=== PATIENT | female | born 1940 | race African-American/Black ===

== ENCOUNTER → 2016-12-30 | Outpatient (CLI) | payer MEDICARE, BC ==
[~2016-12-30] MED LIST: ACET-822; EFFE150C PO; ENAL20TA PO; ENAL5TAB PO; HYDR-2768 PO; LORA-392 PO; METO50TA PO; PROP10TA6 PO; TOPR100T15 PO; VENL75TA91 PO
--- NOTE | 2016-12-31 11:37 | RSPPFT ---
DATE OF PROCEDURE: 12/30/16 COMMENTS: Spirometry with FVC of 1.9 predicted 2.6, FEV1 of 1.2 predicted 1.9, FEV1/FVC ratio 66% predicted 81%. Post-bronchodilator FVC increases to 2.2 and FEV1 to 1.4. Minimal air trapping is present with RV/TLC at 59%. RV is increased to 2.38 predicted 2.33. DLCO is 63% of predicted. IMPRESSION: On the basis of the above, patient has an obstructive lung defect with some response to acutely inhaled bronchodilator.
== END ==
LOC: HRSP 10:28
PROVIDERS: ATTEND Internal Medicine Pulmonary Disease
DX: R06.02 Shortness of breath (principal); R91.8 Other nonspecific abnormal finding of lung field
CPT/HCPCS: 94060; 94620; 94726; 94729

== ENCOUNTER 2017-01-01 07:41 | Day surgery (SDC) | payer MEDICARE, BC ==
[~2017-01-01] VITALS: Ht 162.6 cm; Wt 83.6 kg
[2017-01-01] VITALS (7 sets, daily range): BP systolic 184–215; BP diastolic 101–113; PULSE 56–68; RESP 16–18; TEMP 97.5–98.1; O2SAT 93–95
[~2017-01-01 07:41] MED LIST changes: -ACET-822; -EFFE150C PO; -ENAL5TAB PO; -METO50TA PO; -PROP10TA6 PO
[2017-01-01] MEDS ORDERED: ENAL5TAB PO (08:22)
[2017-01-01] MEDS ORDERED: EFFE150C PO (08:22)
[2017-01-01] MEDS ORDERED: ACET-822 (08:22)
[2017-01-01] MEDS ORDERED: METO50TA PO (08:22)
[2017-01-01] MEDS ORDERED: PROP10TA6 PO (08:22)
[2017-01-01] MEDS ORDERED: SODIUM CHLOR 0.9% 1000 ML IV SCH (08:30)
[2017-01-01] MEDS ORDERED: LIDOCAINE HCL 1% 20 ML VIAL ONE (09:13)
[2017-01-01] MEDS ORDERED: MIDAZOLAM HCL 2 MG/2 ML VIAL ONE (09:22)
[2017-01-01] MEDS ORDERED: fentaNYL CITRATE 250 MCG/5 ML AMP ONE (09:22)
--- NOTE | 2017-01-01 10:58 | RADRPT ---
EXAM DATE/TIME: 01/01/2017 10:47 [facility] COMPARISON: No previous studies available for comparison. INDICATIONS : Post attempted right lung biopsy. MEDICAL HISTORY : None. SURGICAL HISTORY : None. ENCOUNTER: Initial ACUITY: 1 day PAIN SCORE: 0/10 LOCATION: Right chest FINDINGS: A single frontal expiratory view of the chest was performed. The lungs are symmetrically aerated and clear. No evidence of pneumothorax. Mediastinal structures are in the midline. The cardio-mediastinal contours and bronchopulmonary markings are unremarkable for an expiratory exam . Osseous structures are intact. CONCLUSION: Negative for pneumothorax. Melvin Chin MD FACR on January 01, 2017 at 10:57 Board Certified Radiologist. This report was verified electronically.
--- NOTE | 2017-01-01 12:06 | RADRPT ---
EXAM DATE/TIME: 01/01/2017 10:09 [facility] COMPARISON: No previous studies available for comparison. INDICATIONS : Right lung mass. RADIATION DOSE: 16.50 CTDIvol (mGy) MEDICAL HISTORY : Carcinoma, breast. Carcinoma, colon. Hypertension. SURGICAL HISTORY : Mastectomy, bilateral. Colon resection.Tubal ligation. section. ENCOUNTER: Initial ACUITY: 1 day PAIN SCALE: 0/10 LOCATION: chest TECHNIQUE: Volumetric scanning of the chest was performed. Using automated exposure control and adjustment of t he mA and/or kV according to patient size, radiation dose was kept as low as reasonably achievable to obtain optimal diagnostic quality images. DICOM format image data is available electronically for r eview and comparison. Follow-up recommendations for detected pulmonary nodules are based at a minimum on nodule size and pa tient risk factors according to Fleischner Society Guidelines.FINDINGS: Multiple attempts were made to try to obtain percutaneous access to the mass in the right upper lobe hidden behind rib and scapula. I was unsuccessful in obtaining direct access to this mass. This has slowly increased in size when c ompared to series of old studies. PET scan may help in followup. No other suspicious lesions are identified. There is no accessible adenopathy Surgical clips are seen in the left axilla. CONCLUSION: Unsuccessful attempted biopsy as described above. Melvin Chin MD FACR on January 01, 2017 at 11:59 Board Certified Radiologist. This report was verified electronically.
== END 2017-01-01 12:45 | disposition home or self-care (01) ==
LOC: HRAD 07:41 → HRIP 07:42 → HRAD 12:45
PROVIDERS: ATTEND Internal Medicine Pulmonary Disease
DX: R91.8 Other nonspecific abnormal finding of lung field (principal)
CPT/HCPCS: 71010; 71250; J2250; J3010; J7030

== ENCOUNTER 2018-02-24 19:46 | Inpatient (IN) ==
[2018-02-24] MEDS ORDERED: Acetaminophen 325 MG Tablet PO ONE (20:39)
--- NOTE | 2018-02-24 21:14 | XR ---
EXAM DATE: 02/24/2018 8:37 PM EDT AGE/SEX: 78 years / Female INDICATIONS: Short of breath and chest tightness. CLINICAL DATA: This is the patient's initial encounter. Patient reports that signs and symptoms have been present for 1 day and indicates a pain score of 3/10. MEDICAL/SURGICAL HISTORY: . Carcinoma, breast. Carcinoma, colon. Hypertension. Mastectomy, marifer ateral. Colon resection.Tubal ligation. section . COMPARISON: [facility], CHEST EXPIRATION ONLY, 01/01/2017. . FINDINGS: A single AP view of the chest demonstrates normal opacity in the left upper lobe. Nodular density in the right upper lobe. Heart enlarged. Tortuous thoracic aorta. Clips in the left axilla. The cardiom ediastinal contours are unremarkable. Osseous structures are intact. CONCLUSION: 1. Abnormal opacity in the left upper lobe could be infiltrate versus underlying mass. 2. Prominent nodule/mass in the right upper lobe. Electronically signed by: Sam Cespedes MD 02/24/2018 9:13 PM EDT
[2018-02-24 21:29] LABS: Baso % (Auto) 0.2 % (0.0-2.0); Eos % (Auto) 0.1 % (0.0-4.0); Hematocrit 36.2 % (35.0-46.0); Hemoglobin 11.8 gm/dL (11.6-15.3); Lymph # (Auto) 0.7 th/mm3 (1.0-4.8); Lymph % (Auto) 10.8 % (9.0-44.0); Mean Corpuscular HGB Conc 32.7 % (32.0-36.0); Mean Corpuscular Hemoglobin 28.2 pg (27.0-34.0); Mean Corpuscular Volume 86.2 fL (80.0-100.0); Mean Platelet Volume 7.7 fL (7.0-11.0); Mono # (Auto) 0.5 th/mm3 (0.0-0.9); Mono % (Auto) 8.8 % (0.0-8.0); Neut # (Auto) 4.9 th/mm3 (1.8-7.7); Neut % (Auto) 80.1 % (16.0-70.0); Platelet Count 215 th/mm3 (150-450); Red Cell Distribution Width 14.7 % (11.6-17.2); White Blood Count 6.1 th/mm3 (4.0-11.0)
[2018-02-24 21:40] LABS: Activated Partial Thrombo Time 34.8 sec (24.3-30.1); D-Dimer 2.13 mg/L FEU (0.00-0.50); Prothrombin Time 10.1 sec (9.8-11.6)
[2018-02-24 21:41] LABS: Anion Gap 10 meq/L (5-15); Aspartate Aminotransferase 34 U/L (15-37); Blood Urea Nitrogen 14 mg/dL (7-18); Carbon Dioxide 24.3 meq/L (21.0-32.0); Chloride 97 meq/L (98-107); Glomerular Filtration Rate 44 mL/min (>89); Glucose,Random 115 mg/dL (74-106); Lipase 78 U/L (73-393); Potassium 4.2 meq/L (3.5-5.1); Sodium 131 meq/L (136-145)
[2018-02-24 21:42] LABS: Alanine Aminotransferase 22 U/L (10-53); Magnesium 2.1 mg/dL (1.5-2.5)
[2018-02-24 21:46] LABS: Alkaline Phosphatase 72 U/L (45-117); Total Protein 7.9 g/dL (6.4-8.2); Troponin I 0.05 ng/mL (0.02-0.05)
[2018-02-24 21:59] LABS: CKMB Percent 0.5 % (0.0-4.0); Creatine Kinase MB 1.3 ng/mL (0.5-3.6)
--- NOTE | 2018-02-24 22:09 | ED ---
HPI General Chief complaint: Shortness of Breath/Dyspnea Stated complaint: shortness of breath Time Seen by Provider: 02/24/18 20:37 Source: patient Limitations: no limitations History of Present Illness HPI narrative: The patient is a 78 year old female who presents to the [facility] emergency department with a history of cough and congestion that she reports began 5-6 days ago. The patient reports that the cough has been productive of yellow to green sputum, however yesterday it was blood-tinged. She reports that over the last 4 days she is then developed shortness of breath. She denies any prior history of lung disease. She reports that she did previously smoke and quit in 2006, however she does not use any inhaler she denies any prior history of coronary artery disease, RI, or congestive heart failure, however with this cough she has been experiencing central chest pain. She last had chest pain yesterday. She reports having chronic lower extremity edema, however no calf pain, or erythema. Patient additionally reports on review of systems having she reports having body aches associated with this. The patient reports having generalized fatigue and feeling unsteady on her feet. On review of systems otherwise, patient denies having any known recent fevers, however she is febrile on arrival, neck pain, abdominal pain, vomiting, diarrhea, dysuria or urinary urgency, or focal neurologic symptoms. Related Data Home Medications Medication Instructions Recorded Confirmed alprazolam [Xanax] 1 mg PO HS 02/25/18 02/25/18 enalapril maleate 10 mg PO BID 02/25/18 02/25/18 propranolol 10 mg PO DAILY 02/25/18 02/25/18 venlafaxine [Effexor XR] 150 mg PO DAILY 02/25/18 02/25/18 Allergies Allergy/AdvReac Type Severity Reaction Status Date / Time aspirin Allergy Severe Rash Verified 02/24/18 21:18 penicillin G Allergy Severe Rash Verified 02/24/18 21:18 Review of Systems ROS: all other systems reviewed are negative [facility] Medical History Medical History Breast cancer (Acute) Breast cancer metastasized to adrenal gland (Acute) Breast cancer metastasized to axillary lymph node (Acute) History of colon cancer (Acute) Hx of unstable angina (Acute) Hypertension (Acute) Nodule of lower lobe of left lung (Acute) V-tach (Acute) Surgical History Surgical History History of mastectomy (Acute) History of partial colectomy (Acute) Family History Family History Other Family history normal Social History Social History Substance History: No History of Abuse Second Hand Smoke Exposure: No Smoking Status: Former smoker Tobacco Type: Cigarettes How Often Do You Have a Drink Containing Alcohol: Never Recent Travel in [facility] within the Last 8 Weeks: No Recent Out of Country Travel within the Last 8 Weeks: No Immunization History Tetanus Immunization: >5 Years Exam Const General: cooperative, well developed and acute distress (Mild conversational dyspnea) mild Nutritional Appearance: well nourished Orientation: alert, awake and oriented x3 HENMT Head: normocephalic and atraumatic Nose: no nasal discharge and no epistaxis Mouth: moist mucous membranes Throat: posterior oropharynx normal and uvula midline Eyes Sclera: normal sclerae Pupils: PERRL EOM: EOM intact bilaterally Neck Neck: no meningeal signs, trachea midline and no JVD Resp Effort & Inspection: no use of accessory muscles Auscultation: clear to auscultation bilaterally, no crackles, no rhonchi, no wheezes and other (Clear to auscultation bilaterally, however diminished breath sounds in bilateral bases noted.) Cardio Rate: tachycardic (Sinus tachycardia in the 1 teens, no pulse deficits to the extremities on simultaneous auscultation and palpation of her radial artery.) Rhythm: regular rhythm Heart Sounds: no gallops, murmur (The patient has a 2/6 to 3/6 systolic murmur audible best at the anterior axillary line on the left. This is a high-pitched murmur.) systolic and no rubs GI Inspection: non-distended Palpation: soft, no hepatosplenomegaly, no guarding, not rigid and nontender Auscultation: normal bowel sounds Back/Spine/Pelvis Back: no CVA tenderness Skin General: dry skin (warm) Neuro General: alert, awake and oriented x3 Cranial Nerves: CN's II-XI intact bilaterally Speech: speech normal Motor: strength 5/5 throughout and no movement abnormalities noted Sensory Exam: no sensory deficits noted Extrem General: normal to inspection (2+ pulses in all 4 extremities.), no calf tenderness, no clubbing, no cyanosis and edema (Bilateral trace pedal edema. She reports that this is no worse than usual.) Psych Mood: congruent mood Affect: normal affect Judgment: judgment good Course Reevaluation(s) Reevaluation #1: The patient on reevaluation reports feeling improved. Consultations Consultation #1: The patient's case including history, pertinent physical examination findings, and laboratory studies were discussed with . It was agreed that the patient would be admitted to the hospitalist service. Initial Documented Vital Signs Temperature 100.2 F H 02/24/18 20:04 Pulse Rate 121 H 02/24/18 20:04 Respiratory Rate 24 02/24/18 20:04 Blood Pressure 185/103 H 02/24/18 20:04 Pulse Oximetry 95 02/24/18 20:04 Last Documented Vital Signs Temperature 99.1 F 02/25/18 02:45 Pulse Rate 101 H 02/25/18 02:45 Respiratory Rate 18 02/25/18 02:45 Blood Pressure 176/93 H 02/25/18 05:40 Pulse Oximetry 99 02/25/18 02:45 Medical Decision Making MDM Narrative Medical decision making narrative: During the course of the patient's emergency department visit, the patient's history, examination, and differential diagnosis were reviewed with the patient. The patient was placed on a cardiac rehabilitation program director with oximetry and frequent blood pressure monitoring. The patient had IV access obtained and blood work sent for analysis. A diagnostic evaluation was started regarding this patient's shortness of breath associated with cough. The patient was initially provided Tylenol for fever, Zofran for nausea. The patient's diagnostic studies are remarkable for a white count of 6.1, Hemoglobin 11.8, platelets 215 with 80.1 neutrophils, PT PTT unremarkable, d- dimer is elevated at 2.13, CTA to rule out PE was ordered. Chemistry is remarkable for sodium of 131, chloride 97, creatinine 1.41, GFR 44, glucose 115 , albumin 3.0, lipase within normal limits, BNP 110 urinalysis.. Urinalysis shows trace ketones moderate occult blood trace leukocyte esterase 12 WBCs few mucus, culture indicated. The patient's chest x-ray shows an abnormal opacity in the left upper lobe which could be an infiltrate versus underlying mass, prominent nodule/mass in the right upper lobe. The patient had blood cultures x2 added to her workup. The patient was started on Rocephin and Zithromax IV. The patient CTA to rule out PE shows no evidence of pulmonary embolism, suspicious 1.8 cm mass in the right upper lobe that is amenable to percutaneous biopsy, consolidation seen throughout the mid left upper lobe. Prominent lymph nodes in the left hilum are noted. The patient's results were discussed with the patient, including the plan of care. I explained that further testing and/ or monitoring is indicated based on the patient's history, examination, and/ or laboratory findings. Therefore, I recommended admission for additional evaluation. The patient expressed understanding and was agreeable with this plan. The patient was admitted to the hospital in guarded condition and sent to a bed under the care of the [facility] service. Medical Screen Exam Complete: Yes Emergency Medical Condition: Yes Differential Diagnosis Differential Diagnosis: Pneumonia, versus influenza, versus pyelonephritis, versus pulmonary embolism Medical Records Medical records reviewed: Yes I reviewed the patient's medical records. Lab Data Lab results reviewed: Yes I reviewed the patient's lab results. Result diagrams: 02/24/18 20:58 02/24/18 20:58 Lab Results 02/24/18 02/24/18 02/24/18 Range/Units 20:58 20:58 20:58 WBC 6.1 (4.0-11.0) th/mm3 RBC 4.20 (4.00-5.30) mil/mm3 Hgb 11.8 (11.6-15.3) gm/dL Hct 36.2 (35.0-46.0) % MCV 86.2 (80.0-100.0) fL MCH 28.2 (27.0-34.0) pg MCHC 32.7 (32.0-36.0) % RDW 14.7 (11.6-17.2) % Plt Count 215 (150-450) th/mm3 MPV 7.7 (7.0-11.0) fL Neut % (Auto) 80.1 H (16.0-70.0) % Lymph % (Auto) 10.8 (9.0-44.0) % [place] % (Auto) 8.8 H (0.0-8.0) % Eos % (Auto) 0.1 (0.0-4.0) % Baso % (Auto) 0.2 (0.0-2.0) % Neut # (Auto) 4.9 (1.8-7.7) th/mm3 Lymph # (Auto) 0.7 L (1.0-4.8) th/mm3 [place] # (Auto) 0.5 (0.0-0.9) th/mm3 Eos # (Auto) 0.0 (0.0-0.4) th/mm3 Baso # (Auto) 0.0 (0.0-0.2) th/mm3 WBC Differential . Differential Comment Auto diff final PT (9.8-11.6) sec INR Ratio APTT (24.3-30.1) sec D-Dimer Quant (PE/DVT) Cancelled Sodium 131 L (136-145) meq/L Potassium 4.2 (3.5-5.1) meq/L Chloride 97 L (98-107) meq/L Carbon Dioxide 24.3 (21.0-32.0) meq/L Anion Gap 10 (5-15) meq/L BUN 14 (7-18) mg/dL Creatinine 1.41 H (0.50-1.00) mg/dL Estimated GFR 44 L (>89) mL/min Random Glucose 115 H (74-106) mg/dL Lactic Acid (0.4-2.0) mmol/L Calcium 9.0 (8.5-10.1) mg/dL Magnesium (1.5-2.5) mg/dL Total Bilirubin 0.3 (0.2-1.0) mg/dL AST 34 (15-37) U/L ALT 22 (10-53) U/L Alkaline Phosphatase 72 (45-117) U/L Total Creatine Kinase (26-192) U/L CK-MB (CK-2) (0.5-3.6) ng/mL CK-MB (CK-2) % (0.0-4.0) % Troponin I 0.05 (0.02-0.05) ng/mL B-Natriuretic Peptide (0-100) pg/mL Total Protein 7.9 (6.4-8.2) g/dL Albumin 3.0 L (3.4-5.0) g/dL Lipase 78 (73-393) U/L Urine Color (Yellw/Straw) Urine Clarity (Clear) Urine pH (5.0-8.5) Ur Specific [place] (1.002-1.035) Urine Protein (Neg-Trace) mg/dL Urine Glucose (UA) (Negative) mg/dL Urine Ketones (Negative) mg/dL Urine Occult Blood (Negative) Urine Nitrate (Negative) Urine Bilirubin (Negative) Urine Urobilinogen (Less than 2) mg/dL Ur Leukocyte Esterase (Negative) Urine RBC (0-3) /hpf Urine WBC (0-5) /hpf Ur Squamous Epith Cells (0-5) /hpf Hyaline Casts (0-3) /lpf Urine Mucus (Occasional) /lpf Micro UA Comment Ur Microscopic Review Urine Culture Comments 02/24/18 02/24/18 02/24/18 Range/Units 20:58 20:58 20:58 WBC (4.0-11.0) th/mm3 RBC (4.00-5.30) mil/mm3 Hgb (11.6-15.3) gm/dL Hct (35.0-46.0) % MCV (80.0-100.0) fL MCH (27.0-34.0) pg MCHC (32.0-36.0) % RDW (11.6-17.2) % Plt Count (150-450) th/mm3 MPV (7.0-11.0) fL Neut % (Auto) (16.0-70.0) % Lymph % (Auto) (9.0-44.0) % [place] % (Auto) (0.0-8.0) % Eos % (Auto) (0.0-4.0) % Baso % (Auto) (0.0-2.0) % Neut # (Auto) (1.8-7.7) th/mm3 Lymph # (Auto) (1.0-4.8) th/mm3 [place] # (Auto) (0.0-0.9) th/mm3 Eos # (Auto) (0.0-0.4) th/mm3 Baso # (Auto) (0.0-0.2) th/mm3 WBC Differential Differential Comment PT 10.1 (9.8-11.6) sec INR 1.0 Ratio APTT 34.8 H (24.3-30.1) sec D-Dimer Quant (PE/DVT) 2.13 H Sodium (136-145) meq/L Potassium (3.5-5.1) meq/L Chloride (98-107) meq/L Carbon Dioxide (21.0-32.0) meq/L Anion Gap (5-15) meq/L BUN (7-18) mg/dL Creatinine (0.50-1.00) mg/dL Estimated GFR (>89) mL/min Random Glucose (74-106) mg/dL Lactic Acid 1.0 (0.4-2.0) mmol/L Calcium (8.5-10.1) mg/dL Magnesium (1.5-2.5) mg/dL Total Bilirubin (0.2-1.0) mg/dL AST (15-37) U/L ALT (10-53) U/L Alkaline Phosphatase (45-117) U/L Total Creatine Kinase (26-192) U/L CK-MB (CK-2) (0.5-3.6) ng/mL CK-MB (CK-2) % (0.0-4.0) % Troponin I (0.02-0.05) ng/mL B-Natriuretic Peptide 110 H (0-100) pg/mL Total Protein (6.4-8.2) g/dL Albumin (3.4-5.0) g/dL Lipase (73-393) U/L Urine Color (Yellw/Straw) Urine Clarity (Clear) Urine pH (5.0-8.5) Ur Specific [place] (1.002-1.035) Urine Protein (Neg-Trace) mg/dL Urine Glucose (UA) (Negative) mg/dL Urine Ketones (Negative) mg/dL Urine Occult Blood (Negative) Urine Nitrate (Negative) Urine Bilirubin (Negative) Urine Urobilinogen (Less than 2) mg/dL Ur Leukocyte Esterase (Negative) Urine RBC (0-3) /hpf Urine WBC (0-5) /hpf Ur Squamous Epith Cells (0-5) /hpf Hyaline Casts (0-3) /lpf Urine Mucus (Occasional) /lpf Micro UA Comment Ur Microscopic Review Urine Culture Comments 02/24/18 02/24/18 Range/Units 20:58 22:07 WBC (4.0-11.0) th/mm3 RBC (4.00-5.30) mil/mm3 Hgb (11.6-15.3) gm/dL Hct (35.0-46.0) % MCV (80.0-100.0) fL MCH (27.0-34.0) pg MCHC (32.0-36.0) % RDW (11.6-17.2) % Plt Count (150-450) th/mm3 MPV (7.0-11.0) fL Neut % (Auto) (16.0-70.0) % Lymph % (Auto) (9.0-44.0) % [place] % (Auto) (0.0-8.0) % Eos % (Auto) (0.0-4.0) % Baso % (Auto) (0.0-2.0) % Neut # (Auto) (1.8-7.7) th/mm3 Lymph # (Auto) (1.0-4.8) th/mm3 [place] # (Auto) (0.0-0.9) th/mm3 Eos # (Auto) (0.0-0.4) th/mm3 Baso # (Auto) (0.0-0.2) th/mm3 WBC Differential Differential Comment PT (9.8-11.6) sec INR Ratio APTT (24.3-30.1) sec D-Dimer Quant (PE/DVT) Sodium (136-145) meq/L Potassium (3.5-5.1) meq/L Chloride (98-107) meq/L Carbon Dioxide (21.0-32.0) meq/L Anion Gap (5-15) meq/L BUN (7-18) mg/dL Creatinine (0.50-1.00) mg/dL Estimated GFR (>89) mL/min Random Glucose (74-106) mg/dL Lactic Acid (0.4-2.0) mmol/L Calcium (8.5-10.1) mg/dL Magnesium 2.1 (1.5-2.5) mg/dL Total Bilirubin (0.2-1.0) mg/dL AST (15-37) U/L ALT (10-53) U/L Alkaline Phosphatase (45-117) U/L Total Creatine Kinase 282 H (26-192) U/L CK-MB (CK-2) 1.3 (0.5-3.6) ng/mL CK-MB (CK-2) % 0.5 (0.0-4.0) % Troponin I (0.02-0.05) ng/mL B-Natriuretic Peptide (0-100) pg/mL Total Protein (6.4-8.2) g/dL Albumin (3.4-5.0) g/dL Lipase (73-393) U/L Urine Color Nisa (Yellw/Straw) Urine Clarity Cloudy H (Clear) Urine pH 5.0 (5.0-8.5) Ur Specific [place] 1.028 (1.002-1.035) Urine Protein 500 or greater (Neg-Trace) mg/dL Urine Glucose (UA) Negative (Negative) mg/dL Urine Ketones Trace H (Negative) mg/dL Urine Occult Blood Moderate H (Negative) Urine Nitrate Negative (Negative) Urine Bilirubin Negative (Negative) Urine Urobilinogen Less than 2 (Less than 2) mg/dL Ur Leukocyte Esterase Trace H (Negative) Urine RBC 1 (0-3) /hpf Urine WBC 12 H (0-5) /hpf Ur Squamous Epith Cells 5 (0-5) /hpf Hyaline Casts 5 (0-3) /lpf Urine Mucus Few H (Occasional) /lpf Micro UA Comment Culture indicated Ur Microscopic Review Not Reportable Urine Culture Comments Culture indicated Imaging Data Radiologist's impression: Chest X-Ray 02/24/18 20:37 CONCLUSION: 1. Abnormal opacity in the left upper lobe could be infiltrate versus underlying mass. 2. Prominent nodule/mass in the right upper lobe. Chest CTA 02/24/18 22:09 CONCLUSION: 1. No pulmonary embolus. 2. Suspicious 1.8 cm mass in the right upper lobe. This is amenable to percutaneous biopsy. 3. Consolidation seen throughout the mid left upper lobe. This could be secondary to underlying process such as infection and pneumonia. Neoplasm especially central neoplasm with postobstructive change could've a similar appearance. 4. Prominent lymph nodes in the AP window region and left hilum. 5. The lungs and adenopathy could be further evaluated with a PET FDG study. ECG Data Attestation: I personally reviewed and interpreted this ECG as follows: Prior ECG tracings: available for review Interpretation: The patient had an EKG done on arrival that shows a sinus tachycardia heart rate of 111, QRS duration is 161 ms, QTC 420 ms. Left bundle branch block is noted with marked left axis deviation. A review of the record reveals that the patient has had a left bundle branch block when comparing to her prior EKGs. Discharge Plan Discharge Disposition Patient Disposition: 30 Still Patient Discharge Details Diagnosis: Community acquired pneumonia, Lung mass Physicians Team ED Provider: Shannan Dodson Primary Care Provider: Alireza Albert Attending Provider: Patel Kamara Other Providers: Jacek Garcia Discharge Interventions Interventions: ED Discharge Assessment Last Done: 02/25/18 02:20 Vital Signs Last Done: 02/24/18 20:42 Status ED Status: Left Department Discharge Information Discharge Date/Time: 02/25/18 02:59
[2018-02-24] MEDS ORDERED: Azithromycin Inj 500 MG in Sodium Chlor 0.9% Inj 250 ML IV.SIG ONE (22:10)
[2018-02-24] MEDS ORDERED: Sodium Chlor 0.9% Inj 500 ML IV.SIG ONE (22:29)
[2018-02-24 22:42] LABS: Bilirubin,Urine Negative (Negative); Clarity,Urine Cloudy (Clear); Color,Urine Amber (Yellw/Straw); Glucose,Urine (UA) Negative (Negative); Hyaline Casts,Urine 5 /lpf (0-3); Leukocyte Esterase,Urine Trace (Negative); Mucus,Urine Few /lpf (Occasional); Nitrite,Urine Negative (Negative); Specific Gravity,Urine 1.028 (1.002-1.035); Squamous Epithelial Cell,Urine 5 /hpf (0-5)
--- NOTE | 2018-02-24 22:58 | CT ---
EXAM DATE: 02/24/2018 10:13 PM EDT AGE/SEX: 78 years / Female INDICATIONS: [place], congestion, shortness of breath. CLINICAL DATA: This is the patient's initial encounter. Patient reports that signs and symptoms have been present for 1 day and indicates a pain score of 3/10. MEDICAL/SURGICAL HISTORY: Hypertension. Metastatic disease. Carcinoma, breast. . Mastectomy. RADIATION DOSE: 9.12 CTDI (mGy) COMPARISON: C, CHEST 1V SINGLE AP, 02/24/2018. . TECHNIQUE: Volumetric scanning was performed using a multi-row detector CT scanner during bolus infu fred of 60 ml Omnipaque 350 (iohexol) nonionic water-soluble contrast as a single exam dose. The joann a was post processed with a variety of visualization algorithms including full volume maximum intensi ty projection and sliding thin slab reformation. Using automated exposure control and adjustment of t he mA and/or kV according to patient size, radiation dose was kept as low as reasonably achievable to obtain optimal diagnostic quality images. DICOM format image data is available electronically for r eview and comparison. FINDINGS: Pulmonary Arteries: No filling defects are seen in the pulmonary arteries out to the subsegmental ve ssels. The left and right pulmonary arteries are normal in diameter. Lung: There is area of consolidation seen throughout the mid lateral left lower lobe. There is also an irregular 1.8 cm mass at the superior lateral right upper lobe. Effusion: There is a minimal left pleural effusion. Mediastinum: There are prominent lymph nodes in the AP window region and the left hilum. No evidence of mediastinal or hilar adenopathy. There is an aberrant right subclavian artery passing posterior t o the esophagus to reach the right-sided chest. This a normal variant. Other: Clips are seen in the left axillary region.. There is a 3.2 cm mass at the right thoracic inl et region thought to be inferiorly directed thyroid nodule. There is a 1 cm hypodense mass at the sup erior aspect of the left lobe of the liver. This nonspecific. It likely represents a cyst or hemangio ma although is nonspecific on this noncontrast CT examination. CONCLUSION: 1. No pulmonary embolus. 2. Suspicious 1.8 cm mass in the right upper lobe. This is amenable to percutaneous biopsy. 3. Consolidation seen throughout the mid left upper lobe. This could be secondary to underlying proc ess such as infection and pneumonia. Neoplasm especially central neoplasm with postobstructive change could've a similar appearance. 4. Prominent lymph nodes in the AP window region and left hilum. 5. The lungs and adenopathy could be further evaluated with a PET FDG study. Electronically signed by: Alireza Cox MD 02/24/2018 10:56 PM EDT
[2018-02-25] MEDS ORDERED: Bisacodyl 10 MG Supp RECTAL PRN (01:36)
--- NOTE | 2018-02-25 01:48 | P.HP ---
History of Present Illness Service: [facility] Primary Care Physician: Alireza Albert MD History of Present Illness: 78-year-old female with a past medical history significant for history of colon cancer, history of breast cancer and hypertension presents to the emergency department for evaluation of shortness of breath times 4 days. The patient has a known lung mass. She reports that she has been coughing bloody sputum. She complains of fever and chills. She has associated chest tightness. She denies any abdominal pain. No nausea/vomiting/diarrhea. No lateralizing signs/ symptoms. Inpatient Certification: I certify that the inpatient services were ordered in accordance with Medicare regulations governing the order. This includes certification that hospital inpatient services are reasonable and necessary and in the case of services not specified as inpatient-only under 42 CFR 419.22(n), that they are appropriately provided as inpatient services in accordance to with the 2-midnight benchmark under 43 CFR 412.3(e) Estimated Total Length of Stay (Days): 2 Plans for Post Hospital Care: Not yet determined Review of Systems All other systems reviewed negative except as stated in HPI PMFSH - History History Provided By: Patient - Medical History Medical History: Medical History (Last Updated 02/25/18 @ 01:43 by Violet Villa MD) Breast cancer Breast cancer metastasized to adrenal gland Breast cancer metastasized to axillary lymph node History of colon cancer Hx of unstable angina Hypertension Nodule of lower lobe of left lung V-tach - Surgical History Surgical History: Surgical History (Last Updated 02/25/18 @ 01:44 by Violet Villa MD) History of mastectomy History of partial colectomy - Family History Family History: Family History (Last Updated 02/25/18 @ 01:44 by Violet Villa MD) Other Family history normal - Tobacco History Second Hand Smoke Exposure: No Tobacco Use In Past 30 Days: No Smoking Status: Former smoker - Alcohol History How Often Do You Have a Drink Containing Alcohol: Monthly or less - Substance Use History Substance History: No History of Abuse - Travel History Recent Travel in the [place] Within the Last 8 Weeks: No Recent Travel Out of the Country Within the Last 8 Weeks: No - Immunization History Tetanus Immunization: >5 Years Medications and Allergies Active Medications: Active Medications Sodium Chloride (Ns Flush) 2 ml IV.FLUSH UNSCH PRN PRN Reason: FLUSH AFTER USING IV ACCESS Allergies Allergy/AdvReac Type Severity Reaction Status Date / Time aspirin Allergy Severe Rash Verified 02/24/18 21:18 penicillin G Allergy Severe Rash Verified 02/24/18 21:18 Home Medications Medication Instructions Recorded Confirmed Type alprazolam [Xanax] 1 mg PO HS 02/25/18 02/25/18 History enalapril maleate 10 mg PO BID 02/25/18 02/25/18 History metoprolol succinate 100 mg PO DAILY 02/25/18 02/25/18 History propranolol 10 mg PO DAILY 02/25/18 02/25/18 History venlafaxine [Effexor XR] 150 mg PO DAILY 02/25/18 02/25/18 History Exam Vital signs: Vital Signs 02/24/18 20:04 02/24/18 20:37 02/24/18 20:42 Temperature 100.2 F H 101.2 F H Pulse Rate 121 H 112 H Respiratory Rate 24 24 Blood Pressure 185/103 H 158/86 H Pulse Oximetry 95 95 100 02/24/18 20:44 02/25/18 01:33 Temperature Pulse Rate 94 H Respiratory Rate 17 Blood Pressure 153/93 H Pulse Oximetry 100 100 Intake & Output 02/24/18 02/24/18 02/25/18 06:59 18:59 06:59 Intake Total 850 / 850 Balance 850 / 850 Weight 87.09 kg Intake: IV 850 / 850 Azithromycin Inj 500 MG In NS 250 / 250 Inj 250 ML @ 250 mls/hr IV.SIG ONCE ONE Rx#:[id number] NS Inj 500 ML @ Wide Open IV. 500 / 500 SIG BOLUS ONE Rx#:[id number] Rocephin Inj 1,000 MG In NS Inj 100 / 100 100 ML @ 200 mls/hr IV.SIG ONCE ONE Rx#:[id number] Narrative: Gen.: No acute distress Head: Normocephalic. Atraumatic. EENT: Pupils equal round and reactive to light. Nose without drainage. Airway intact. Throat without injection. Cardiovascular: Regular rate and rhythm. No murmurs, rubs or gallops. Respiratory: Lungs clear to auscultation bilaterally. No wheezes or rhonchi. Abdomen: Soft, nontender, nondistended. No peritoneal signs. Musculoskeletal: No gross deformities. No edema. Skin: No obvious rashes or erythema. Neuro: Sensory and motor grossly intact. Cranial nerves II through XII grossly intact. Results - Labs CBC & Chem 7: 02/24/18 20:58 02/24/18 20:58 Labs: Laboratory Results - last 24 hr 02/24/18 02/24/18 02/24/18 20:58 20:58 20:58 WBC 6.1 RBC 4.20 Hgb 11.8 Hct 36.2 MCV 86.2 MCH 28.2 MCHC 32.7 RDW 14.7 Plt Count 215 MPV 7.7 Neut % (Auto) 80.1 H Lymph % (Auto) 10.8 [place] % (Auto) 8.8 H Eos % (Auto) 0.1 Baso % (Auto) 0.2 Neut # (Auto) 4.9 Lymph # (Auto) 0.7 L [place] # (Auto) 0.5 Eos # (Auto) 0.0 Baso # (Auto) 0.0 WBC Differential . Differential Comment Auto diff final PT INR APTT D-Dimer Quant (PE/DVT) Cancelled Sodium 131 L Potassium 4.2 Chloride 97 L Carbon Dioxide 24.3 Anion Gap 10 BUN 14 Creatinine 1.41 H Estimated GFR 44 L Random Glucose 115 H Lactic Acid Calcium 9.0 Magnesium Total Bilirubin 0.3 AST 34 ALT 22 Alkaline Phosphatase 72 Total Creatine Kinase CK-MB (CK-2) CK-MB (CK-2) % Troponin I 0.05 B-Natriuretic Peptide Total Protein 7.9 Albumin 3.0 L Lipase 78 Urine Color Urine Clarity Urine pH Ur Specific [place] Urine Protein Urine Glucose (UA) Urine Ketones Urine Occult Blood Urine Nitrate Urine Bilirubin Urine Urobilinogen Ur Leukocyte Esterase Urine RBC Urine WBC Ur Squamous Epith Cells Hyaline Casts Urine Mucus Micro UA Comment Ur Microscopic Review Urine Culture Comments 02/24/18 02/24/18 02/24/18 20:58 20:58 20:58 WBC RBC Hgb Hct MCV MCH MCHC RDW Plt Count MPV Neut % (Auto) Lymph % (Auto) [place] % (Auto) Eos % (Auto) Baso % (Auto) Neut # (Auto) Lymph # (Auto) [place] # (Auto) Eos # (Auto) Baso # (Auto) WBC Differential Differential Comment PT 10.1 INR 1.0 APTT 34.8 H D-Dimer Quant (PE/DVT) 2.13 H Sodium Potassium Chloride Carbon Dioxide Anion Gap BUN Creatinine Estimated GFR Random Glucose Lactic Acid 1.0 Calcium Magnesium Total Bilirubin AST ALT Alkaline Phosphatase Total Creatine Kinase CK-MB (CK-2) CK-MB (CK-2) % Troponin I B-Natriuretic Peptide 110 H Total Protein Albumin Lipase Urine Color Urine Clarity Urine pH Ur Specific [place] Urine Protein Urine Glucose (UA) Urine Ketones Urine Occult Blood Urine Nitrate Urine Bilirubin Urine Urobilinogen Ur Leukocyte Esterase Urine RBC Urine WBC Ur Squamous Epith Cells Hyaline Casts Urine Mucus Micro UA Comment Ur Microscopic Review Urine Culture Comments 02/24/18 02/24/18 20:58 22:07 WBC RBC Hgb Hct MCV MCH MCHC RDW Plt Count MPV Neut % (Auto) Lymph % (Auto) [place] % (Auto) Eos % (Auto) Baso % (Auto) Neut # (Auto) Lymph # (Auto) [place] # (Auto) Eos # (Auto) Baso # (Auto) WBC Differential Differential Comment PT INR APTT D-Dimer Quant (PE/DVT) Sodium Potassium Chloride Carbon Dioxide Anion Gap BUN Creatinine Estimated GFR Random Glucose Lactic Acid Calcium Magnesium 2.1 Total Bilirubin AST ALT Alkaline Phosphatase Total Creatine Kinase 282 H CK-MB (CK-2) 1.3 CK-MB (CK-2) % 0.5 Troponin I B-Natriuretic Peptide Total Protein Albumin Lipase Urine Color [place] Urine Clarity Cloudy H Urine pH 5.0 Ur Specific [place] 1.028 Urine Protein 500 or greater Urine Glucose (UA) Negative Urine Ketones Trace H Urine Occult Blood Moderate H Urine Nitrate Negative Urine Bilirubin Negative Urine Urobilinogen Less than 2 Ur Leukocyte Esterase Trace H Urine RBC 1 Urine WBC 12 H Ur Squamous Epith Cells 5 Hyaline Casts 5 Urine Mucus Few H Micro UA Comment Culture indicated Ur Microscopic Review Not Reportable Urine Culture Comments Culture indicated - Imaging Impressions Chest X-Ray 02/24/18 20:37 CONCLUSION: 1. Abnormal opacity in the left upper lobe could be infiltrate versus underlying mass. 2. Prominent nodule/mass in the right upper lobe. Chest CTA 02/24/18 22:09 CONCLUSION: 1. No pulmonary embolus. 2. Suspicious 1.8 cm mass in the right upper lobe. This is amenable to percutaneous biopsy. 3. Consolidation seen throughout the mid left upper lobe. This could be secondary to underlying process such as infection and pneumonia. Neoplasm especially central neoplasm with postobstructive change could've a similar appearance. 4. Prominent lymph nodes in the AP window region and left hilum. 5. The lungs and adenopathy could be further evaluated with a PET FDG study. Caprini VTE Risk Assessment Caprini VTE Risk Assessment: Moderate/High Risk (score >= 2) Caprini Risk Assessment Model: Point Value = 1 Point Value = 2 Point Value = 3 Point Value = 5 Age 41-60 Minor surgery BMI > 25 kg/m2 Swollen legs Varicose veins or History of unexplained or recurrent spontaneous Oral contraceptives or hormone replacement Sepsis (< 1 month) Serious lung disease, including pneumonia (< 1 month) Abnormal pulmonary function Acute myocardial infarction Congestive heart failure (< 1 month) History of inflammatory bowel disease Medical patient at bed rest Age 61-74 Arthroscopic surgery Major open surgery (> 45 min) Laparoscopic surgery (> 45 min) Malignancy Confined to bed (> 72 hours) Immobilizing plaster cast Central venous access Age >= 75 History of VTE Family history of VTE Factor V Leiden Prothrombin [id number] Lupus anticoagulant Anticardiolipin antibodies Elevated serum homocysteine Heparin-induced thrombocytopenia Other congenital or acquired thrombophilia Stroke (< 1 month) Elective arthroplasty Hip, pelvis, or leg fracture Acute spinal cord injury (< 1 month) Prophylaxis Regimen: Total Risk Factor Score Risk Level Prophylaxis Regimen 0-1 Low Early ambulation 2 Moderate Order ONE of the following: *Sequential Compression Device (SCD) *Heparin 5000 units SQ BID 3-4 Higher Order ONE of the following medications: *Heparin 5000 units SQ TID *Enoxaparin/Lovenox 40 mg SQ daily (WT < 150 kg, CrCl > 30 mL/min) *Enoxaparin/Lovenox 30 mg SQ daily (WT < 150 kg, CrCl > 10-29 mL/min) *Enoxaparin/Lovenox 30 mg SQ BID (WT < 150 kg, CrCl > 30 mL/min) AND/OR *Sequential Compression Device (SCD) 5 or more Highest Order ONE of the following medications: *Heparin 5000 units SQ TID (Preferred with Epidurals) *Enoxaparin/Lovenox 40 mg SQ daily (WT < 150 kg, CrCl > 30 mL/min) *Enoxaparin/Lovenox 30 mg SQ daily (WT < 150 kg, CrCl > 10-29 mL/min) *Enoxaparin/Lovenox 30 mg SQ BID (WT < 150 kg, CrCl > 30 mL/min) AND *Sequential Compression Device (SCD) Assessment and Plan - Plan Assessment/plan: 1. Pneumonia Chest CT significant for left upper lobe consolidation Rocephin/azithromycin Duo nebs 2. Lung mass Chest CT significant for 1.8 cm mass in the right upper lobe that is amenable to percutaneous biopsy Patient with history of breast and colon cancer Oncology consulted, appreciate assistance 3. Hypertension Continue home medications 4. Chronic kidney disease Creatinine 1.41, baseline Monitor renal function FEN Regular diet Electrolytes: Monitor and replete as needed Heparin
[2018-02-25] MEDS ORDERED: Sodium Chloride 0.9% 2 ML Flush PRN IV.FLUSH (01:58)
[2018-02-25] MEDS ORDERED: Metoprolol Tartrate 25 MG Tablet PO ONE (03:44)
[2018-02-25] MEDS: Heparin - SQ 10,000 UNITS/ML Vial SQ SCH ×3 (05:40→21:53)
[2018-02-25] MEDS: Venlafaxine XR 75 MG Capsule PO SCH (08:55)
[2018-02-25] MEDS: Propranolol 10 MG Tablet PO SCH (08:56)
[2018-02-25] MEDS: Senna/Docusate Sodium 8.6/50 MG Tablet PO SCH ×2 (08:56→21:53)
[2018-02-25] MEDS: Acetaminophen 325 MG Tablet PO PRN ×2 (08:57→21:57)
[2018-02-25] MEDS: Sodium Chloride 0.9% 2 ML Flush BID IV.FLUSH SCH ×2 (09:01→21:55)
--- NOTE | 2018-02-25 09:53 | ECG ---
Date Performed: 02/24/2018 Time Performed: 20:32:47 PTAGE: 78 years EKG: SINUS TACHYCARDIA POSSIBLE LEFT ATRIAL ENLARGEMENT MARKED LEFT AXIS DEVIATION LEFT BUNDLE B RANCH BLOCK ABNORMAL ECG PREVIOUS TRACING : 06/05/2011 07.03 DOCTOR: Rosales Stinson Interpretating Date/Time 02/25/2018 09:53:11
--- NOTE | 2018-02-25 12:12 | P.PN ---
Subjective Interval history: This is a pleasant 78 y/o Female with Colon Cancer, History of breast cancer, Hypertension, who came to ER with SOB for the last four days, she has known lung mass, cough and bloody sputum production, She complains of fever and chills. She has associated chest tightness. has Breast cancer metastasized to Adrenal gland, to Axillary lymph node. Seen in her bedroom she will need IV antibiotics for pneumonia for at least three days for this reason meets inpatient criteria. no nausea, vomit or diarrhea, awaiting final by facility specialist. Physical Exam Vital signs: Vital Signs 02/24/18 20:04 02/24/18 20:37 02/24/18 20:42 Temperature 100.2 F H 101.2 F H Pulse Rate 121 H 112 H Respiratory Rate 24 24 Blood Pressure 185/103 H 158/86 H Pulse Oximetry 95 95 100 02/24/18 20:44 02/25/18 01:33 02/25/18 02:28 Temperature Pulse Rate 94 H 98 H Respiratory Rate 17 20 Blood Pressure 153/93 H 159/78 H Pulse Oximetry 100 100 02/25/18 02:45 02/25/18 05:40 02/25/18 08:00 Temperature 99.1 F 101.2 F H Pulse Rate 101 H 86 Respiratory Rate 18 17 Blood Pressure 191/102 H 176/93 H 169/85 H Pulse Oximetry 99 99 02/25/18 09:00 Temperature Pulse Rate Respiratory Rate Blood Pressure Pulse Oximetry 97 Intake & Output 02/24/18 02/25/18 02/25/18 18:59 06:59 18:59 Intake Total 850 / 850 Balance 850 / 850 Weight 85.1 kg Intake: IV 850 / 850 Azithromycin Inj 500 MG In NS 250 / 250 Inj 250 ML @ 250 mls/hr IV.SIG ONCE ONE Rx#:[id number] NS Inj 500 ML @ Wide Open IV. 500 / 500 SIG BOLUS ONE Rx#:[id number] Rocephin Inj 1,000 MG In NS Inj 100 / 100 100 ML @ 200 mls/hr IV.SIG ONCE ONE Rx#:[id number] Other: # Voids 1 Weight On Admission 85.6 kg Narrative: Gen.: No acute distress Head: Normocephalic. Atraumatic. EENT: Pupils equal round and reactive to light. Nose without drainage. Airway intact. Throat without injection. Cardiovascular: Regular rate and rhythm. No murmurs, rubs or gallops. Respiratory: Lungs clear to auscultation bilaterally. No wheezes or rhonchi. Abdomen: Soft, nontender, nondistended. No peritoneal signs. Musculoskeletal: No gross deformities. No edema. Skin: No obvious rashes or erythema. Neuro: Sensory and motor grossly intact. Cranial nerves II through XII grossly intact. Results - Labs CBC & Chem 7: 02/24/18 20:58 02/24/18 20:58 Laboratory Results - last 24 hr 02/24/18 02/24/18 02/24/18 20:58 20:58 20:58 WBC 6.1 RBC 4.20 Hgb 11.8 Hct 36.2 MCV 86.2 MCH 28.2 MCHC 32.7 RDW 14.7 Plt Count 215 MPV 7.7 Neut % (Auto) 80.1 H Lymph % (Auto) 10.8 [place] % (Auto) 8.8 H Eos % (Auto) 0.1 Baso % (Auto) 0.2 Neut # (Auto) 4.9 Lymph # (Auto) 0.7 L [place] # (Auto) 0.5 Eos # (Auto) 0.0 Baso # (Auto) 0.0 WBC Differential . Differential Comment Auto diff final PT INR APTT D-Dimer Quant (PE/DVT) Cancelled Sodium 131 L Potassium 4.2 Chloride 97 L Carbon Dioxide 24.3 Anion Gap 10 BUN 14 Creatinine 1.41 H Estimated GFR 44 L Random Glucose 115 H Lactic Acid Calcium 9.0 Magnesium Total Bilirubin 0.3 AST 34 ALT 22 Alkaline Phosphatase 72 Total Creatine Kinase CK-MB (CK-2) CK-MB (CK-2) % Troponin I 0.05 B-Natriuretic Peptide Total Protein 7.9 Albumin 3.0 L Lipase 78 Urine Color Urine Clarity Urine pH Ur Specific [place] Urine Protein Urine Glucose (UA) Urine Ketones Urine Occult Blood Urine Nitrate Urine Bilirubin Urine Urobilinogen Ur Leukocyte Esterase Urine RBC Urine WBC Ur Squamous Epith Cells Hyaline Casts Urine Mucus Micro UA Comment Ur Microscopic Review Urine Culture Comments 02/24/18 02/24/18 02/24/18 20:58 20:58 20:58 WBC RBC Hgb Hct MCV MCH MCHC RDW Plt Count MPV Neut % (Auto) Lymph % (Auto) [place] % (Auto) Eos % (Auto) Baso % (Auto) Neut # (Auto) Lymph # (Auto) [place] # (Auto) Eos # (Auto) Baso # (Auto) WBC Differential Differential Comment PT 10.1 INR 1.0 APTT 34.8 H D-Dimer Quant (PE/DVT) 2.13 H Sodium Potassium Chloride Carbon Dioxide Anion Gap BUN Creatinine Estimated GFR Random Glucose Lactic Acid 1.0 Calcium Magnesium Total Bilirubin AST ALT Alkaline Phosphatase Total Creatine Kinase CK-MB (CK-2) CK-MB (CK-2) % Troponin I B-Natriuretic Peptide 110 H Total Protein Albumin Lipase Urine Color Urine Clarity Urine pH Ur Specific [place] Urine Protein Urine Glucose (UA) Urine Ketones Urine Occult Blood Urine Nitrate Urine Bilirubin Urine Urobilinogen Ur Leukocyte Esterase Urine RBC Urine WBC Ur Squamous Epith Cells Hyaline Casts Urine Mucus Micro UA Comment Ur Microscopic Review Urine Culture Comments 02/24/18 02/24/18 20:58 22:07 WBC RBC Hgb Hct MCV MCH MCHC RDW Plt Count MPV Neut % (Auto) Lymph % (Auto) [place] % (Auto) Eos % (Auto) Baso % (Auto) Neut # (Auto) Lymph # (Auto) [place] # (Auto) Eos # (Auto) Baso # (Auto) WBC Differential Differential Comment PT INR APTT D-Dimer Quant (PE/DVT) Sodium Potassium Chloride Carbon Dioxide Anion Gap BUN Creatinine Estimated GFR Random Glucose Lactic Acid Calcium Magnesium 2.1 Total Bilirubin AST ALT Alkaline Phosphatase Total Creatine Kinase 282 H CK-MB (CK-2) 1.3 CK-MB (CK-2) % 0.5 Troponin I B-Natriuretic Peptide Total Protein Albumin Lipase Urine Color [place]isa Urine Clarity Cloudy H Urine pH 5.0 Ur Specific [place] 1.028 Urine Protein 500 or greater Urine Glucose (UA) Negative Urine Ketones Trace H Urine Occult Blood Moderate H Urine Nitrate Negative Urine Bilirubin Negative Urine Urobilinogen Less than 2 Ur Leukocyte Esterase Trace H Urine RBC 1 Urine WBC 12 H Ur Squamous Epith Cells 5 Hyaline Casts 5 Urine Mucus Few H Micro UA Comment Culture indicated Ur Microscopic Review Not Reportable Urine Culture Comments Culture indicated Microbiology 02/24/18 20:58 Blood - Peripheral Aerobic Blood Culture - Preliminary No growth in 1 day 02/24/18 20:58 Blood - Peripheral Anaerobic Blood Culture - Preliminary No growth in 1 day 02/24/18 20:50 Blood - Peripheral Aerobic Blood Culture - Preliminary No growth in 1 day 02/24/18 20:50 Blood - Peripheral Anaerobic Blood Culture - Preliminary No growth in 1 day 02/24/18 22:13 Nasal Wash Influenza Types A,B Antigen - Final Negative for FLU A and B antigen Infection due to influenza A or B cannot be ruled out since the antigen present in the sample may be below the detection limit of the test. - Imaging Impressions Chest X-Ray 02/24/18 20:37 CONCLUSION: 1. Abnormal opacity in the left upper lobe could be infiltrate versus underlying mass. 2. Prominent nodule/mass in the right upper lobe. Chest CTA 02/24/18 22:09 CONCLUSION: 1. No pulmonary embolus. 2. Suspicious 1.8 cm mass in the right upper lobe. This is amenable to percutaneous biopsy. 3. Consolidation seen throughout the mid left upper lobe. This could be secondary to underlying process such as infection and pneumonia. Neoplasm especially central neoplasm with postobstructive change could've a similar appearance. 4. Prominent lymph nodes in the AP window region and left hilum. 5. The lungs and adenopathy could be further evaluated with a PET FDG study. Assessment and Plan - Plan 1. Pneumonia Chest CT significant for Mid left upper lobe consolidation, Rocephin/azithromycin Duo nebs 2. Lung mass, in a patient with Colon Cancer, History of breast cancer, Hypertension, has known lung mass, cough and bloody sputum production, has Breast cancer metastasized to Adrenal gland, to Axillary lymph node. Chest CT significant for 1.8 cm mass in the right upper lobe that is amenable to percutaneous biopsy Oncology consulted, appreciate assistance 3. Hypertension Continue home medications 4. Chronic kidney disease Creatinine 1.41, baseline Monitor renal function FEN Regular diet Electrolytes: Monitor and replete as needed Heparin Code Status: Full code. Discussed Condition With: patient and nurse Discharge Planning: Once cleared by facility specialist.
--- NOTE | 2018-02-25 15:02 | MB ---
cc: Jacek Garcia MD DATE: 02/25/2018 REQUESTING PHYSICIAN: Alireza Albert MD REASON FOR CONSULTATION: Evaluation of right lung mass. HISTORY OF PRESENT ILLNESS: This is a 78-year-old lady with a history of colon cancer, status post partial colectomy, and history of breast cancer status post bilateral mastectomy, was admitted with shortness of breath and cough with bloody sputum of 4 days duration. The patient was seen in the emergency room and chest x-ray and CT scans were performed and oncology was consulted for the right upper lobe lung mass. Mrs. Quiroga gives me the history that she had breast cancer for which she had bilateral mastectomies about 6 years ago and did not receive chemotherapy or radiation, but received adjuvant hormonal therapy. She is not sure of the name, but completed the treatment with hormone therapy 2 years ago according to her, and was being followed up by Dr. Sam Moncada, her oncologist, who apparently does not practice at [facility]. I could not get much other history from her, especially about the colon cancer for which she apparently had a partial colectomy with no adjuvant chemotherapy. Again, details are unclear at this time, but she has been told that she has a lung mass and was told that she would need surgery, according to her, and she does not want to have surgery at this point. She wants to only know what the lung nodule represents and does not want any further surgery or treatment. REVIEW OF SYSTEMS: No headaches, motor or sensory symptoms. No back pain or bone pain. No abdominal pain, distention, nausea, vomiting, constipation, blood in stool or black stools. No frequency, urgency or hematuria. PAST MEDICAL HISTORY: As above. In addition, she has history of unstable angina, hypertension, and history of ventricular tachycardia, not requiring pacemaker placement. FAMILY HISTORY: Noncontributory. PAST SURGICAL HISTORY: Bilateral mastectomy and partial colectomy. SOCIAL HISTORY: Nonsmoker, non-alcohol abuser. MEDICATIONS: 1. Xanax. 2. Enalapril. 3. Metoprolol. 4. Propranolol. 5. Effexor. ALLERGIES: ASPIRIN AND PENICILLIN G. PHYSICAL EXAMINATION: GENERAL: She is an elderly lady in no acute distress at this time. VITAL SIGNS: Stable. She is afebrile. Pallor present. No icterus. No palpable adenopathy in the neck or axilla. HEENT: Without oropharyngeal lesions. There is no thyromegaly. Alert and oriented x4. No spinal tenderness. NECK: No JVD. CARDIOVASCULAR: S1, S2, without murmurs or gallops. LUNGS: Without crackles or wheeze. CHEST: With bilateral MRM scars without evidence of recurrence in the chest wall. No nodule, mass, or tenderness. ABDOMEN: Soft and obese without masses or tenderness. No free fluid clinically. EXTREMITIES: No edema or evidence of DVTs. LABORATORY DATA: Chest x-ray 02/24/2018 showed abnormal opacity in the left upper lobe, which could be infiltrate versus underlying mass and a prominent nodule/mass in the right upper lobe 1.[address] size on CT scan, which is amenable to percutaneous biopsy, and consolidation is seen throughout the mid left upper lobe and no pulmonary embolus. Prominent lymph nodes in the AP window region and left hilum. Labs reviewed. CBC normal with white count of 6.1, hemoglobin 11.8, and platelets 215,000. ASSESSMENT AND PLAN: A 78-year-old lady who had a history of breast cancer, status post adjuvant hormone therapy after bilateral mastectomy with no evidence of recurrence of disease at this time. In addition, she had a history of colon cancer. All the details are not available. Does not appear to have had adjuvant chemotherapy for that. At this time, she has a right upper lobe lung nodule and possibly mediastinal lymphadenopathy which could be further evaluated with a PET CT scan followed by CT-guided biopsy of the right upper lobe lung nodule. The patient seems to have heard that she would need surgery and does not want to have anything to do with surgery. I explained to her that we first would need to know the nature of the right upper lobe lung nodule, which could be a primary lung cancer versus metastatic breast cancer and unlikely metastatic colon cancer. For that she would need a biopsy and initially she agreed to that, but subsequently she wants to discuss that with her family and will get back to us. I will follow her in the hospital along with his hospitalists. MD ASHLEY [place]/kennedi , 02:13 PM , 02:28 PM
[2018-02-26] MEDS: Azithromycin Inj 500 MG in Sodium Chlor 0.9% Inj 250 ML IV.SIG SCH (00:01)
[2018-02-26] MEDS: Heparin - SQ 10,000 UNITS/ML Vial SQ SCH ×3 (05:59→21:40)
[2018-02-26 06:14] LABS: Baso % (Auto) 0.6 % (0.0-2.0); Eos # (Auto) 0.1 th/mm3 (0.0-0.4); Hematocrit 32.7 % (35.0-46.0); Hemoglobin 10.8 gm/dL (11.6-15.3); Lymph % (Auto) 23.9 % (9.0-44.0); Mean Corpuscular Hemoglobin 28.4 pg (27.0-34.0); Mean Corpuscular Volume 86.1 fL (80.0-100.0); Mean Platelet Volume 7.7 fL (7.0-11.0); Mono # (Auto) 0.5 th/mm3 (0.0-0.9); Mono % (Auto) 12.1 % (0.0-8.0); Neut # (Auto) 2.5 th/mm3 (1.8-7.7); Neut % (Auto) 60.4 % (16.0-70.0); Platelet Count 208 th/mm3 (150-450); Red Blood Count 3.79 mil/mm3 (4.00-5.30); Red Cell Distribution Width 15.4 % (11.6-17.2); White Blood Count 4.2 th/mm3 (4.0-11.0)
[2018-02-26 06:42] LABS: Calcium 8.9 mg/dL (8.5-10.1); Potassium 3.8 meq/L (3.5-5.1)
[2018-02-26] MEDS: Venlafaxine XR 75 MG Capsule PO SCH (08:21)
[2018-02-26] MEDS: Propranolol 10 MG Tablet PO SCH (08:21)
[2018-02-26] MEDS: Senna/Docusate Sodium 8.6/50 MG Tablet PO SCH ×2 (08:22→21:39)
[2018-02-26] MEDS: Sodium Chloride 0.9% 2 ML Flush BID IV.FLUSH SCH ×2 (08:22→21:41)
--- NOTE | 2018-02-26 11:56 | P.PN ---
Subjective Interval history: This is a pleasant 78 y/o Female with Colon Cancer, History of breast cancer, Hypertension, who came to ER with SOB for the last four days, she has known lung mass, cough and bloody sputum production, She complains of fever and chills. She has associated chest tightness. has Breast cancer metastasized to Adrenal gland, to Axillary lymph node. Seen in her bedroom she will need IV antibiotics for pneumonia for at least three days for this reason meets inpatient criteria, awaiting final by quality assurance specialist. 02/26: Patient stable seen in her bedroom, no new complaint, discussed with her and her Children in the room, no nausea, vomit or diarrhea, improving her clinical condition. Physical Exam Vital signs: Vital Signs 02/25/18 12:00 02/25/18 16:00 02/25/18 20:00 Temperature 97.9 F 97.8 F 98.9 F Pulse Rate 63 66 81 Respiratory Rate 17 17 18 Blood Pressure 144/70 H 152/83 H 202/110 H Pulse Oximetry 98 98 95 02/25/18 22:01 02/26/18 00:00 02/26/18 08:00 Temperature 97.8 F 98.5 F Pulse Rate 70 83 Respiratory Rate 18 17 Blood Pressure 149/77 H 158/85 H Pulse Oximetry 98 95 94 L 02/26/18 11:12 Temperature Pulse Rate Respiratory Rate Blood Pressure Pulse Oximetry 96 Intake & Output 02/25/18 02/26/18 02/26/18 18:59 06:59 18:59 Intake Total 900 / 900 350 / 350 Balance 900 / 900 350 / 350 Weight 83.9 kg Intake: IV 350 / 350 Azithromycin Inj 500 MG In NS 250 / 250 Inj 250 ML @ 250 mls/hr IV.SIG Q24H [facility] Rx#:[id number] Rocephin Inj 1,000 MG In NS Inj 100 / 100 100 ML @ 200 mls/hr IV.SIG Q24H [facility] Rx#:[id number] Oral 900 / 900 Other: # Voids 2 2 Narrative: Gen.: No acute distress Head: Normocephalic. Atraumatic. EENT: Pupils equal round and reactive to light. Nose without drainage. Airway intact. Throat without injection. Cardiovascular: Regular rate and rhythm. No murmurs, rubs or gallops. Respiratory: Lungs clear to auscultation bilaterally. No wheezes or rhonchi. Abdomen: Soft, nontender, nondistended. No peritoneal signs. Musculoskeletal: No gross deformities. No edema. Skin: No obvious rashes or erythema. Neuro: Sensory and motor grossly intact. Cranial nerves II through XII grossly intact. Results - Labs CBC & Chem 7: 02/26/18 05:09 02/26/18 05:09 Laboratory Results - last 24 hr 02/26/18 02/26/18 05:09 05:09 WBC 4.2 RBC 3.79 L Hgb 10.8 L Hct 32.7 L MCV 86.1 MCH 28.4 MCHC 33.0 RDW 15.4 Plt Count 208 MPV 7.7 Neut % (Auto) 60.4 Lymph % (Auto) 23.9 Brooks % (Auto) 12.1 H Eos % (Auto) 3.0 Baso % (Auto) 0.6 Neut # (Auto) 2.5 Lymph # (Auto) 1.0 Brooks # (Auto) 0.5 Eos # (Auto) 0.1 Baso # (Auto) 0.0 WBC Differential . Differential Comment Auto diff final Sodium 136 Potassium 3.8 Chloride 102 Carbon Dioxide 24.0 Anion Gap 10 BUN 15 Creatinine 1.16 H Estimated GFR 55 L Random Glucose 95 Calcium 8.9 Microbiology 02/24/18 20:58 Blood - Peripheral Aerobic Blood Culture - Preliminary No growth in 2 days 02/24/18 20:58 Blood - Peripheral Anaerobic Blood Culture - Preliminary No growth in 2 days 02/24/18 20:50 Blood - Peripheral Aerobic Blood Culture - Preliminary No growth in 2 days 02/24/18 20:50 Blood - Peripheral Anaerobic Blood Culture - Preliminary No growth in 2 days 02/24/18 22:07 Clean Catch Urine Urine Culture - Final Gardnerella vaginalis Assessment and Plan - Plan 1. Pneumonia Chest CT significant for Mid left upper lobe consolidation, Rocephin/azithromycin Duo nebs 2. Lung mass, in a patient with Colon Cancer, History of breast cancer, Hypertension, has known lung mass, cough and bloody sputum production, has Breast cancer metastasized to Adrenal gland, to Axillary lymph node. Chest CT significant for 1.8 cm mass in the right upper lobe that is amenable to percutaneous biopsy Oncology consulted, appreciate assistance, not yet seen discussed with charge Nurse, she will call looks like the consult did not go through at the time it was placed. 3. Hypertension Continue home medications 4. Chronic kidney disease Creatinine 1.41, Improving to 1.16 5. Gardnerella Vaginalis found on her Urinalysis started on metronidazole. FEN Regular diet Electrolytes: Monitor and replete as needed Heparin Code Status: Full code. Discussed Condition With: Patient and relatives in the room. Discharge Planning: Expected by tomorrow after recommendations given by quality assurance specialist.
[2018-02-26] MEDS: metroNIDAZOLE 500 MG Tablet PO SCH (21:39)
[2018-02-27] MEDS: Azithromycin Inj 500 MG in Sodium Chlor 0.9% Inj 250 ML IV.SIG SCH (00:43)
[2018-02-27] MEDS: Acetaminophen 325 MG Tablet PO PRN (00:50)
[2018-02-27] MEDS: Heparin - SQ 10,000 UNITS/ML Vial SQ SCH ×4 (05:06→23:10)
[2018-02-27] MEDS: Propranolol 10 MG Tablet PO SCH (07:55)
[2018-02-27] MEDS: Sodium Chloride 0.9% 2 ML Flush BID IV.FLUSH SCH ×2 (07:55→20:52)
[2018-02-27] MEDS: Venlafaxine XR 75 MG Capsule PO SCH (07:55)
[2018-02-27] MEDS: metroNIDAZOLE 500 MG Tablet PO SCH ×2 (07:55→20:52)
[2018-02-27] MEDS: Senna/Docusate Sodium 8.6/50 MG Tablet PO SCH ×2 (08:07→20:52)
--- NOTE | 2018-02-27 15:36 | P.PN ---
Subjective Interval history: This is a pleasant 78 y/o Female with Colon Cancer, History of breast cancer, Hypertension, who came to ER with SOB for the last four days, she has known lung mass, cough and bloody sputum production, She complains of fever and chills. She has associated chest tightness. has Breast cancer metastasized to Adrenal gland, to Axillary lymph node. Seen in her bedroom she will need IV antibiotics for pneumonia for at least three days for this reason meets inpatient criteria, awaiting final by clinical rehabilitation specialist. 02/26: Patient stable seen in her bedroom, no new complaint, discussed with her and her Children in the room, improving her clinical condition. 02/27: Seen in her bedroom, no new issues, no nausea, vomit or diarrhea, Discussed with Doctor Radha Read he already saw the patient and discussed with relatives about the need for Right upper lung Biopsy the patient was about to decide, she is able to take her own decisions, is alert and oriented and in the presence of Physical Therapy specialist states she wants to proceed with Lung Biopsy, I discuss again with Doctor Read and he asked me to place the Order for CT guided Biopsy of the Right Upper lung Nodule. no nausea, vomit or diarrhea. Physical Exam Vital signs: Vital Signs 02/26/18 16:00 02/26/18 20:00 02/27/18 00:00 Temperature 98.4 F 97.8 F 97.5 F L Pulse Rate 73 73 74 Respiratory Rate 17 18 18 Blood Pressure 156/99 H 189/90 H 162/87 H Pulse Oximetry 97 98 98 02/27/18 08:00 02/27/18 12:00 Temperature 97.6 F 97.5 F L Pulse Rate 72 67 Respiratory Rate 18 18 Blood Pressure 179/91 H 150/70 H Pulse Oximetry 97 96 Intake & Output 02/26/18 02/27/18 02/27/18 18:59 06:59 18:59 Intake Total 500 / 500 830 / 830 Balance 500 / 500 830 / 830 Intake: IV 350 / 350 Azithromycin Inj 500 MG In NS 250 / 250 Inj 250 ML @ 250 mls/hr IV.SIG Q24H [facility] Rx#:[id number] Rocephin Inj 1,000 MG In NS Inj 100 / 100 100 ML @ 200 mls/hr IV.SIG Q24H [facility] Rx#:[id number] Oral 500 / 500 480 / 480 Other: # Voids 3 2 # Bowel Movements 0 Narrative: Gen.: No acute distress Head: Normocephalic. Atraumatic. EENT: Pupils equal round and reactive to light. Nose without drainage. Airway intact. Throat without injection. Cardiovascular: Regular rate and rhythm. No murmurs, rubs or gallops. Respiratory: Lungs clear to auscultation bilaterally. No wheezes or rhonchi. Abdomen: Soft, nontender, nondistended. No peritoneal signs. Musculoskeletal: No gross deformities. No edema. Skin: No obvious rashes or erythema. Neuro: Sensory and motor grossly intact. Cranial nerves II through XII grossly intact. Results - Labs CBC & Chem 7: 02/26/18 05:09 02/26/18 05:09 Microbiology 02/24/18 20:58 Blood - Peripheral Aerobic Blood Culture - Preliminary No growth in 3 days 02/24/18 20:58 Blood - Peripheral Anaerobic Blood Culture - Preliminary No growth in 3 days 02/24/18 20:50 Blood - Peripheral Aerobic Blood Culture - Preliminary No growth in 3 days 02/24/18 20:50 Blood - Peripheral Anaerobic Blood Culture - Preliminary No growth in 3 days Assessment and Plan - Plan 1. Pneumonia Improving will continue both antibiotics by now and follow for Lung Biopsy Chest CT significant for Mid left upper lobe consolidation, Rocephin/azithromycin Duo nebs 2. Lung mass, in a patient with Colon Cancer, History of breast cancer, Hypertension, has known lung mass, cough and bloody sputum production, has Breast cancer metastasized to Adrenal gland, to Axillary lymph node. Chest CT significant for 1.8 cm mass in the right upper lobe that is amenable to percutaneous biopsy Oncology consulted, 02/27: Discussed with Doctor Radha Read he already saw the patient and discussed with relatives about the need for Right upper lung Biopsy the patient was about to decide, she is able to take her own decisions, is alert and oriented and in the presence of Physical Therapy specialist states she wants to proceed with Lung Biopsy, I discuss again with Doctor Read and he asked me to place the Order for CT guided Biopsy of the Right Upper lung Nodule. 3. Hypertension Uncontrolled added Amlodipine 5 mg daily. Continue home medications 4. Chronic kidney disease Creatinine 1.41, Improving to 1.16 5. Gardnerella Vaginalis found on her Urinalysis started on metronidazole. FEN Regular diet Electrolytes: Monitor and replete as needed Heparin Code Status: Full Code. Discussed Condition With: Patient, nurse Miss Thomson, material requirements planning manager and MDR. Discharge Planning: once cleared by clinical rehabilitation specialist.
[2018-02-27] MEDS: amLODIPine 5 MG Tablet PO SCH (17:15)
[2018-02-28] MEDS: Azithromycin Inj 500 MG in Sodium Chlor 0.9% Inj 250 ML IV.SIG SCH ×2 (00:03→23:08)
[2018-02-28] MEDS: Heparin - SQ 10,000 UNITS/ML Vial SQ SCH ×3 (06:11→22:09)
[2018-02-28] MEDS: Senna/Docusate Sodium 8.6/50 MG Tablet PO SCH ×2 (08:56→20:41)
[2018-02-28] MEDS: amLODIPine 5 MG Tablet PO SCH (08:57)
[2018-02-28] MEDS: Venlafaxine XR 75 MG Capsule PO SCH (08:57)
[2018-02-28] MEDS: Propranolol 10 MG Tablet PO SCH (08:57)
[2018-02-28] MEDS: metroNIDAZOLE 500 MG Tablet PO SCH ×2 (08:58→20:41)
[2018-02-28] MEDS: Sodium Chloride 0.9% 2 ML Flush BID IV.FLUSH SCH ×2 (08:58→20:41)
--- NOTE | 2018-02-28 11:12 | P.PN ---
Subjective Interval history: Follow up for pneumonia, lung mass. Patient is currently resting in bed. On room air. Denies any chest pain, shortness of breath, fever or chills. However , she complains of tiredness and weakness. Physical Exam Vital signs: Vital Signs 02/27/18 12:00 02/27/18 16:00 02/27/18 20:00 Temperature 97.5 F L 98.2 F 98 F Pulse Rate 67 73 68 Respiratory Rate 18 18 18 Blood Pressure 150/70 H 160/87 H 190/91 H Pulse Oximetry 96 98 97 02/28/18 00:00 02/28/18 08:00 Temperature 98 F 97.6 F Pulse Rate 73 78 Respiratory Rate 18 17 Blood Pressure 140/81 152/81 H Pulse Oximetry 97 95 Intake & Output 02/27/18 02/28/18 02/28/18 18:59 06:59 18:59 Intake Total 960 / 960 830 / 830 Balance 960 / 960 830 / 830 Weight 83.9 kg Intake: IV 350 / 350 Azithromycin Inj 500 MG In NS 250 / 250 Inj 250 ML @ 250 mls/hr IV.SIG Q24H [facility] Rx#:[id number] Rocephin Inj 1,000 MG In NS Inj 100 / 100 100 ML @ 200 mls/hr IV.SIG Q24H [facility] Rx#:[id number] Oral 960 / 960 480 / 480 Other: # Voids 3 3 Date of Last Bowel Movement 02/27/18 02/28/18 Narrative: Gen.: No acute distress Head: Normocephalic. Atraumatic. EENT: Pupils equal round and reactive to light. Nose without drainage. Airway intact. Throat without injection. Cardiovascular: Regular rate and rhythm. No murmurs, rubs or gallops. Respiratory: Lungs clear to auscultation bilaterally. No wheezes or rhonchi. Abdomen: Soft, nontender, nondistended. No peritoneal signs. Musculoskeletal: No gross deformities. No edema. Skin: No obvious rashes or erythema. Neuro: Sensory and motor grossly intact. Cranial nerves II through XII grossly intact. Results - Labs CBC & Chem 7: 02/26/18 05:09 02/26/18 05:09 Microbiology 02/24/18 20:58 Blood - Peripheral Aerobic Blood Culture - Preliminary No growth in 4 days 02/24/18 20:58 Blood - Peripheral Anaerobic Blood Culture - Preliminary No growth in 4 days 02/24/18 20:50 Blood - Peripheral Aerobic Blood Culture - Preliminary No growth in 4 days 02/24/18 20:50 Blood - Peripheral Anaerobic Blood Culture - Preliminary No growth in 4 days - Imaging Chest X-Ray 02/24/18 20:37 CONCLUSION: 1. Abnormal opacity in the left upper lobe could be infiltrate versus underlying mass. 2. Prominent nodule/mass in the right upper lobe. Chest CTA 02/24/18 22:09 CONCLUSION: 1. No pulmonary embolus. 2. Suspicious 1.8 cm mass in the right upper lobe. This is amenable to percutaneous biopsy. 3. Consolidation seen throughout the mid left upper lobe. This could be secondary to underlying process such as infection and pneumonia. Neoplasm especially central neoplasm with postobstructive change could've a similar appearance. 4. Prominent lymph nodes in the AP window region and left hilum. 5. The lungs and adenopathy could be further evaluated with a PET FDG study. Assessment and Plan - Plan 78-year-old female with a past medical history significant for history of colon cancer, history of breast cancer and hypertension presents to the emergency department for evaluation of shortness of breath. CT pulmonary angiogram shows no PE, suspicious 1.8cm RUL lung mass. Left upper lobe consolidation. Pneumonia -Chest CT significant for Mid left upper lobe consolidation, -Rocephin/azithromycin, Duo nebs -Continue Azithromycin, Ceftriaxone for now. We can likely switch to PO Levaquin monotherapy. Right upper lobe lung mass -1.8cm. Oncology evaluated patient and recommended CT guided biopsy which is currently pending. -Patient has a history of Colon cancer, Breast cancer. Hypertension -Continue oral proton milligrams p.o. twice daily, metoprolol succinate 100 mg daily -Continue HCTZ, amlodipine. Chronic kidney disease -Creatinine 1.41, Improving to 1.16 Gardnerella Vaginalis found on her Urinalysis - Continue metronidazole. Anxiety/Depression - continue Effexor, Xanax. Full code. Heparin SQ.
[2018-03-01] MEDS: Heparin - SQ 10,000 UNITS/ML Vial SQ SCH ×3 (06:05→21:54)
[2018-03-01] MEDS: Venlafaxine XR 75 MG Capsule PO SCH (08:30)
[2018-03-01] MEDS: metroNIDAZOLE 500 MG Tablet PO SCH ×2 (08:31→20:16)
[2018-03-01] MEDS: Sodium Chloride 0.9% 2 ML Flush BID IV.FLUSH SCH ×2 (08:31→20:22)
[2018-03-01] MEDS: amLODIPine 5 MG Tablet PO SCH (08:31)
[2018-03-01] MEDS: Senna/Docusate Sodium 8.6/50 MG Tablet PO SCH ×2 (08:32→20:16)
--- NOTE | 2018-03-01 12:48 | P.PN ---
Subjective Interval history: Follow up for pneumonia, lung mass. Patient is doing well. No acute concerns. Physical Exam Vital signs: Vital Signs 02/28/18 16:00 02/28/18 20:00 03/01/18 00:00 Temperature 97.8 F 98.5 F 98.0 F Pulse Rate 80 77 78 Respiratory Rate 17 20 20 Blood Pressure 175/77 H 123/65 109/61 Pulse Oximetry 90 L 94 L 97 03/01/18 08:00 03/01/18 12:14 Temperature 98.3 F Pulse Rate 82 Respiratory Rate 17 Blood Pressure 129/58 L Pulse Oximetry 93 L 93 L Intake & Output 02/28/18 03/01/18 03/01/18 18:59 06:59 18:59 Intake Total 900 / 900 630 / 630 Balance 900 / 900 630 / 630 Weight 83.2 kg Intake: IV 350 / 350 Azithromycin Inj 500 MG In NS 250 / 250 Inj 250 ML @ 250 mls/hr IV.SIG Q24H [facility] Rx#:[id number] Rocephin Inj 1,000 MG In NS Inj 100 / 100 100 ML @ 200 mls/hr IV.SIG Q24H [facility] Rx#:[id number] Oral 900 / 900 280 / 280 Other: # Voids 6 2 Date of Last Bowel Movement 02/28/18 02/28/18 # Bowel Movements 1 Narrative: Gen.: No acute distress Head: Normocephalic. Atraumatic. EENT: Pupils equal round and reactive to light. Nose without drainage. Airway intact. Throat without injection. Cardiovascular: Regular rate and rhythm. No murmurs, rubs or gallops. Respiratory: Lungs clear to auscultation bilaterally. No wheezes or rhonchi. Abdomen: Soft, nontender, nondistended. No peritoneal signs. Musculoskeletal: No gross deformities. No edema. Skin: No obvious rashes or erythema. Neuro: Sensory and motor grossly intact. Cranial nerves II through XII grossly intact. Results - Labs CBC & Chem 7: 02/26/18 05:09 02/26/18 05:09 Microbiology 02/24/18 20:58 Blood - Peripheral Aerobic Blood Culture - Final No growth in 5 days 02/24/18 20:58 Blood - Peripheral Anaerobic Blood Culture - Final No growth in 5 days 02/24/18 20:50 Blood - Peripheral Aerobic Blood Culture - Final No growth in 5 days 02/24/18 20:50 Blood - Peripheral Anaerobic Blood Culture - Final No growth in 5 days Assessment and Plan - Plan 78-year-old female with a past medical history significant for history of colon cancer, history of breast cancer and hypertension presents to the emergency department for evaluation of shortness of breath. CT pulmonary angiogram shows no PE, suspicious 1.8cm RUL lung mass. Left upper lobe consolidation. Pneumonia -Chest CT significant for Mid left upper lobe consolidation, -Rocephin/azithromycin, Duo nebs -Will switch abx to Levaquin PO. Right upper lobe lung mass -1.8cm. Oncology evaluated patient and recommended CT guided biopsy which is currently pending. -Patient has a history of Colon cancer, Breast cancer. -Will discuss with Oncology to see if we can discharge patient after CT guided Bx tomorrow. Hypertension -Continue oral proton milligrams p.o. twice daily, metoprolol succinate 100 mg daily -Continue HCTZ, amlodipine. Chronic kidney disease -Creatinine 1.41, Improving to 1.16 Gardnerella Vaginalis found on her Urinalysis - Continue metronidazole. Anxiety/Depression - continue Effexor, Xanax. Full code. Heparin SQ.
[2018-03-02] MEDS: Venlafaxine XR 75 MG Capsule PO SCH (09:04)
[2018-03-02] MEDS: Senna/Docusate Sodium 8.6/50 MG Tablet PO SCH ×2 (09:05→22:00)
[2018-03-02] MEDS: Sodium Chloride 0.9% 2 ML Flush BID IV.FLUSH SCH ×2 (09:05→22:00)
[2018-03-02] MEDS: metroNIDAZOLE 500 MG Tablet PO SCH ×2 (09:05→21:53)
[2018-03-02] MEDS: amLODIPine 5 MG Tablet PO SCH (09:05)
[2018-03-02] MEDS: levoFLOXacin 750 MG Tablet PO SCH (09:05)
[2018-03-02] MEDS ORDERED: Temazepam 15 MG Capsule PO PRN (11:31)
--- NOTE | 2018-03-02 11:32 | P.PN ---
Subjective Interval history: Follow up for pneumonia, lung mass. Patient is currently doing well. Denies any chest pain, shortness of breath, fever or chills. Family members are at bedside. Patient is a scheduled for CT-guided biopsy this afternoon. Physical Exam Vital signs: Vital Signs 03/01/18 12:00 03/01/18 12:14 03/01/18 16:00 Temperature 97.6 F 97.9 F Pulse Rate 74 74 Respiratory Rate 18 17 Blood Pressure 151/85 H 150/67 H Pulse Oximetry 98 93 L 97 03/01/18 20:00 03/02/18 00:00 03/02/18 08:00 Temperature 98.2 F 97.8 F 97.8 F Pulse Rate 73 70 76 Respiratory Rate 18 17 18 Blood Pressure 149/85 H 141/85 H 135/62 Pulse Oximetry 95 97 95 03/02/18 11:04 Temperature Pulse Rate Respiratory Rate Blood Pressure Pulse Oximetry 95 Intake & Output 03/01/18 03/02/18 03/02/18 18:59 06:59 18:59 Intake Total 650 / 650 300 / 300 Balance 650 / 650 300 / 300 Weight 82.7 kg Intake: Oral 650 / 650 300 / 300 Other: # Voids 5 3 Date of Last Bowel Movement 02/28/18 03/01/18 # Bowel Movements 1 Narrative: Gen.: No acute distress Head: Normocephalic. Atraumatic. EENT: Pupils equal round and reactive to light. Nose without drainage. Airway intact. Throat without injection. Cardiovascular: Regular rate and rhythm. No murmurs, rubs or gallops. Respiratory: Lungs clear to auscultation bilaterally. No wheezes or rhonchi. Abdomen: Soft, nontender, nondistended. No peritoneal signs. Musculoskeletal: No gross deformities. No edema. Skin: No obvious rashes or erythema. Neuro: Sensory and motor grossly intact. Cranial nerves II through XII grossly intact. Results - Labs CBC & Chem 7: 02/26/18 05:09 02/26/18 05:09 Microbiology 02/24/18 20:58 Blood - Peripheral Aerobic Blood Culture - Final No growth in 5 days 02/24/18 20:58 Blood - Peripheral Anaerobic Blood Culture - Final No growth in 5 days 02/24/18 20:50 Blood - Peripheral Aerobic Blood Culture - Final No growth in 5 days 02/24/18 20:50 Blood - Peripheral Anaerobic Blood Culture - Final No growth in 5 days Assessment and Plan - Plan 78-year-old female with a past medical history significant for history of colon cancer, history of breast cancer and hypertension presents to the emergency department for evaluation of shortness of breath. CT pulmonary angiogram shows no PE, suspicious 1.8cm RUL lung mass. Left upper lobe consolidation. Pneumonia -Chest CT significant for Mid left upper lobe consolidation, -Levaquin PO, DuoNeb. Right upper lobe lung mass -1.8cm. Oncology evaluated patient and recommended CT guided biopsy which is currently pending. -Patient has a history of Colon cancer, Breast cancer. -will consult Hospice after biopsy is done. Patient can follow up with Oncology in the outpatient setting. Hypertension -Continue oral proton milligrams p.o. twice daily, metoprolol succinate 100 mg daily -Continue HCTZ, amlodipine. Chronic kidney disease -Creatinine 1.41, Improving to 1.16 Gardnerella Vaginalis found on her Urinalysis - Continue metronidazole. Anxiety/Depression Insomnia - Start Restoril. - continue Effexor. Full code. Heparin SQ.
[2018-03-02] MEDS ORDERED: fentaNYL Citrate Inj 250 MCG/5 ML Ampul ONE (13:58)
--- NOTE | 2018-03-02 15:09 | P.RAD ---
Post CT Procedure Prog Note - Pre Procedure Diagnosis (1) Lung mass - Post Procedure Diagnosis (1) Lung mass - Procedure Information Procedure Date: 03/02/18 Supervising Radiologist: Carlos Gil Jr, MD Proceduralist/Assist: Kristen Anesthesia: Conscious Sedation - Plan of Activity Patient to Unit: [facility] See PACS Report for procedural detail/treatment. Biopsy CT right Lung Specimen: Core Biopsy Findings: 3 core samples of ORIANA lung mass. Post Ct images show no PTX but small volume hemorrhage.Pt is hemodynamically stable. Plan: F/U CXR
--- NOTE | 2018-03-02 16:39 | CT ---
EXAM DATE: 03/02/2018 1:32 PM EDT AGE/SEX: 78 years / Female INDICATIONS: Right lung mass CLINICAL DATA: This is the patient's initial encounter. Patient reports that signs and symptoms have been present for 1 day and indicates a pain score of 0/10. MEDICAL/SURGICAL HISTORY: Carcinoma, colon. Carcinoma, breast. Hypertension. Mastectomy, left . COMPARISON: [facility] [place], 03/02/2018. . SEDATION TIME (min): 30 BIOPSY SITE: Right lung MEDICATION(S): 2.5mg midazolam (Versed) IV 125mcg fentanyl (Sublimaze) IV DEVICE(S): 20 gauge BARD biopsy needle 19 gauge Introducer Three . . PROCEDURE: CT guided Right lung biopsy I reviewed the patient's prior CTA pulmonary 02/24/2018. A right upper lobe pulmonary mass is the targ et for today's biopsy. Prior to the procedure informed consent was obtained. Any appropriate prior i maging studies were reviewed. Using automated exposure control and adjustment of the mA and/or kV ac cording to patient size, radiation dose was kept as low as reasonably achievable to obtain optimal di agnostic quality images. DICOM format image data is available electronically for review and comparis on. The site was prepped in a sterile fashion. Full sterile technique was used, including cap, mask, brenden rile gloves and gown and a large sterile sheet. Hand hygiene and 2% chlorhexidine and/or betadine/al cohol prep was utilized per protocol for cutaneous antisepsis. The skin and subcutaneous tissues wer e infiltrated with local anesthetic solution. With CT guidance the previously identified target was localized. A 19-gauge coaxial needle was passed via an anterolateral approach into the right upper lobe. Through this a 20-gauge biopsy needle was u tilized to take 3 core specimens. Good core specimens were noted. Adequate hemostasis was obtained w ith compression at the puncture site. Follow-up CT scan reveals no pneumothorax. A small amount of intraparenchymal hemorrhage noted. Patie nt remained hemodynamically stable. Conscious sedation was performed with the prescribed dosages and duration as above in the presence of an independent trained radiology nurse to assist in the monitoring of the patient. EKG and oximetry remained stable throughout the procedure. The patient tolerated the procedure well and there were no complications. The patient was sent to Radiology Outpatient Unit in stable condition. CONCLUSION: 1. Uncomplicated CT guided core biopsy of a right upper lobe pulmonary mass. Small volume intraparen chymal hemorrhage following the biopsy. Electronically signed by: Carlos Gil MD 03/02/2018 4:37 PM EDT
--- NOTE | 2018-03-02 16:40 | XR ---
EXAM DATE: 03/02/2018 4:00 PM EDT AGE/SEX: 78 years / Female INDICATIONS: Post right lung biopsy, no shortness of breath or pain at this time CLINICAL DATA: This is the patient's subsequent encounter. Patient reports that signs and symptoms h ave been present for 1 day and indicates a pain score of 0/10. MEDICAL/SURGICAL HISTORY: Carcinoma, breast. Carcinoma, colon. Hypertension. Colon resection. section. Tubal ligation. mastectomy COMPARISON: [facility] – [place], [place]ST 1V SINGLE AP, 02/24/2018. . FINDINGS: A single frontal expiratory view of the chest was performed. The lungs are symmetrically aerated and clear. No evidence of pneumothorax following right lung biopsy. Consolidation within the right uppe r lobe is stable and relate to the small volume intraparenchymal hemorrhage. Mediastinal structures a re in the midline. CONCLUSION: No pneumothorax following right-sided biopsy. Small volume intraparenchymal hemorrhage is stable from the postbiopsy CT images. Electronically signed by: Carlos Gil MD 03/02/2018 4:39 PM EDT
[2018-03-02] MEDS: Acetaminophen 325 MG Tablet PO PRN (21:53)
[2018-03-03] MEDS: Senna/Docusate Sodium 8.6/50 MG Tablet PO SCH (09:02)
[2018-03-03 09:29] VITALS: TEMP 98.2
[2018-03-03] MEDS: amLODIPine 5 MG Tablet PO SCH (09:54)
[2018-03-03] MEDS: Venlafaxine XR 75 MG Capsule PO SCH (09:55)
[2018-03-03] MEDS: levoFLOXacin 750 MG Tablet PO SCH (09:55)
[2018-03-03] MEDS: metroNIDAZOLE 500 MG Tablet PO SCH (09:55)
[2018-03-03] MEDS: Sodium Chloride 0.9% 2 ML Flush BID IV.FLUSH SCH (09:56)
[2018-03-03] MEDS ORDERED: Enoxaparin Inj 40 MG/0.4 ML Syringe SQ SCH (11:30)
--- NOTE | 2018-03-03 11:32 | P.PN ---
Subjective Interval history: Follow up for pneumonia, lung mass. Patient is currently doing well. Sitting in her chair. Currently on room air. No fever or chills. Physical Exam Vital signs: Vital Signs 03/02/18 15:20 03/02/18 15:35 03/02/18 16:05 Temperature 97.8 F Pulse Rate 68 70 70 Respiratory Rate 18 Blood Pressure 152/87 H 158/82 H 160/90 H Pulse Oximetry 99 99 98 03/02/18 20:00 03/03/18 00:00 03/03/18 08:00 Temperature 97.7 F 97.7 F 98.2 F Pulse Rate 76 73 73 Respiratory Rate 18 Blood Pressure 134/68 130/72 134/64 Pulse Oximetry 95 96 97 03/03/18 08:49 Temperature Pulse Rate Respiratory Rate Blood Pressure Pulse Oximetry 95 Intake & Output 03/02/18 03/03/18 03/03/18 18:59 06:59 18:59 Intake Total 240 / 240 Balance 240 / 240 Weight 83 kg Intake: Oral 240 / 240 Other: # Voids 5 2 Narrative: Gen.: No acute distress Head: Normocephalic. Atraumatic. EENT: Pupils equal round and reactive to light. Nose without drainage. Airway intact. Throat without injection. Cardiovascular: Regular rate and rhythm. No murmurs, rubs or gallops. Respiratory: Lungs clear to auscultation bilaterally. No wheezes or rhonchi. Abdomen: Soft, nontender, nondistended. No peritoneal signs. Musculoskeletal: No gross deformities. No edema. Skin: No obvious rashes or erythema. Neuro: Sensory and motor grossly intact. Cranial nerves II through XII grossly intact. Results - Labs CBC & Chem 7: 02/26/18 05:09 02/26/18 05:09 - Imaging Impressions Lung Biopsy CT 03/02/18 00:00 CONCLUSION: 1. Uncomplicated CT guided core biopsy of a right upper lobe pulmonary mass. Small volume intraparenchymal hemorrhage following the biopsy. Chest X-Ray 03/02/18 16:00 CONCLUSION: No pneumothorax following right-sided biopsy. Small volume intraparenchymal hemorrhage is stable from the postbiopsy CT images. Assessment and Plan - Plan 78-year-old female with a past medical history significant for history of colon cancer, history of breast cancer and hypertension presents to the emergency department for evaluation of shortness of breath. CT pulmonary angiogram shows no PE, suspicious 1.8cm RUL lung mass. Left upper lobe consolidation. Pneumonia -Chest CT significant for Mid left upper lobe consolidation. -Levaquin PO, DuoNeb. Right upper lobe lung mass -1.8cm. Oncology evaluated patient and recommended CT guided biopsy which is currently pending. -Patient has a history of Colon cancer, Breast cancer. -Consulted Hospice. Patient can follow up with Oncology in the outpatient setting. Hypertension -Continue oral proton milligrams p.o. twice daily, metoprolol succinate 100 mg daily -Continue HCTZ, amlodipine. Chronic kidney disease -Creatinine 1.41, Improving to 1.16 Gardnerella Vaginalis found on her Urinalysis - Continue metronidazole. Anxiety/Depression Insomnia - Restoril. - continue Effexor. Full code. Lovenox.
[2018-03-03 13:51] VITALS: BP 141/67; PULSE 85; RESP 17; O2SAT 97
--- NOTE | 2018-03-03 16:19 | P.DS ---
Date of admission: 02/24/18 23:41 Primary care physician: Alireza Albert MD Anticipated date of discharge: 03/03/18 Brief History from admission: 78-year-old female with a past medical history significant for history of colon cancer, history of breast cancer and hypertension presents to the emergency department for evaluation of shortness of breath times 4 days. The patient has a known lung mass. She reports that she has been coughing bloody sputum. She complains of fever and chills. She has associated chest tightness. She denies any abdominal pain. No nausea/vomiting/diarrhea. No lateralizing signs/ symptoms. Patient update on day of discharge: Patient is doing well. No acute concerns. DS: Medications - Discharge Medications Prescriptions: amlodipine [Norvasc] 5 mg PO DAILY #90 tab hydrochlorothiazide 12.5 mg PO DAILY 30 Days #30 cap levofloxacin 750 mg PO DAILY #3 tab metoprolol succinate 100 mg PO DAILY #30 tab DS: Summary Hospital Course: 78-year-old female with a past medical history significant for history of colon cancer, history of breast cancer and hypertension presents to the emergency department for evaluation of shortness of breath. CT pulmonary angiogram shows no PE, suspicious 1.8cm RUL lung mass. Left upper lobe consolidation. Pneumonia -Chest CT significant for Mid left upper lobe consolidation. -Levaquin PO, DuoNeb. Right upper lobe lung mass -1.8cm. Oncology evaluated patient and recommended CT guided biopsy which is currently pending. -Patient has a history of Colon cancer, Breast cancer. -Consulted Hospice. Patient can follow up with Oncology in the outpatient setting. Hypertension -Continue oral proton milligrams p.o. twice daily, metoprolol succinate 100 mg daily -Continue HCTZ, amlodipine. Chronic kidney disease -Creatinine 1.41, Improving to 1.16 Gardnerella Vaginalis found on her Urinalysis - Continue metronidazole. Anxiety/Depression Insomnia - Restoril. - continue Effexor. Full code. Lovenox. Overall, patient is doing well. She underwent CT guided biopsy with regards to her lung mass. Hemodynamically stable, On room air, no fever, chills. Patient will go home with hospice. Discussed at length with family members. - Time Spent with Patient Total time spent providing and/or coordinating discharge services: Greater than 30 minutes - Quality: VTE Deep Vein Thrombosis/Pulmonary Embolism Present on Admission: No Exam Vital signs: Vital Signs 03/02/18 20:00 03/03/18 00:00 03/03/18 08:00 Temperature 97.7 F 97.7 F 98.2 F Pulse Rate 76 73 73 Respiratory Rate 15 18 18 Blood Pressure 134/68 130/72 134/64 Pulse Oximetry 95 96 97 03/03/18 08:49 03/03/18 12:00 Temperature 98.2 F Pulse Rate 85 Respiratory Rate 17 Blood Pressure 141/67 H Pulse Oximetry 95 97 Intake & Output 03/02/18 03/03/18 03/03/18 18:59 06:59 18:59 Intake Total 240 / 240 Balance 240 / 240 Weight 83 kg Intake: Oral 240 / 240 Other: # Voids 5 2 Narrative: Gen.: No acute distress Head: Normocephalic. Atraumatic. EENT: Pupils equal round and reactive to light. Nose without drainage. Airway intact. Throat without injection. Cardiovascular: Regular rate and rhythm. No murmurs, rubs or gallops. Respiratory: Lungs clear to auscultation bilaterally. No wheezes or rhonchi. Abdomen: Soft, nontender, nondistended. No peritoneal signs. Musculoskeletal: No gross deformities. No edema. Skin: No obvious rashes or erythema. Neuro: Sensory and motor grossly intact. Cranial nerves II through XII grossly intact. Results Procedures completed during hospitalization: CT guided lung mass biopsy. - Impressions ITS Impressions Chest CTA 02/24/18 22:09 CONCLUSION: 1. No pulmonary embolus. 2. Suspicious 1.8 cm mass in the right upper lobe. This is amenable to percutaneous biopsy. 3. Consolidation seen throughout the mid left upper lobe. This could be secondary to underlying process such as infection and pneumonia. Neoplasm especially central neoplasm with postobstructive change could've a similar appearance. 4. Prominent lymph nodes in the AP window region and left hilum. 5. The lungs and adenopathy could be further evaluated with a PET FDG study. Lung Biopsy CT 03/02/18 00:00 CONCLUSION: 1. Uncomplicated CT guided core biopsy of a right upper lobe pulmonary mass. Small volume intraparenchymal hemorrhage following the biopsy. Chest X-Ray 03/02/18 16:00 CONCLUSION: No pneumothorax following right-sided biopsy. Small volume intraparenchymal hemorrhage is stable from the postbiopsy CT images. Discharge Plan - Discharge Disposition Patient Disposition: 50 Hospice/Home - Discharge Condition Condition: Fair - Discharge Order Discharge Orders: Discharge Order (Routine); Ordered 03/03/18 Ordered By: Kayy Davidson - Discharge Details Anticipated Discharge Date: 03/03/18 - Physicians Team Primary Care Provider: Alireza Albert Attending Provider: Kayy Davidson Other Providers: Jacek Garcia MD ; Drea Ernandez,[place]
== END 2018-03-03 16:24 | disposition hospice, home (50) ==
LOC: NEPC 19:46 → NEDA 23:41 → N07 02-25 03:27
PROVIDERS: ADMIT Hospitalist; ATTEND Hospitalist